=== PATIENT | male | born 1985 | race Hispanic/Latino ===

== ENCOUNTER 2018-01-27 18:41 | Emergency (ER) | payer SELFPAY | END 2018-01-27 19:15 | disposition short-term general hospital (02) | LOC: ER 18:41 | DX: M79.672 Pain in left foot (principal) ==

== ENCOUNTER 2019-05-25 11:20 | Emergency (ER) | payer OTHER ==
[~2019-05-25] VITALS: Ht 167.6 cm; Wt 99.8 kg
[2019-05-25 12:18] LABS: BASOPHILS % 0.4 % (0.0-1.0); EOSINOPHILS # (AUTO) 0.2 (0.0-0.4); EOSINOPHILS % 2.3 % (0.0-6.0); HEMATOCRIT 45.2 % (38.2-49.6); HEMOGLOBIN 15.6 g/dL (14.0-18.0); LYMPHOCYTES % 9.3 % (18.0-39.1); MEAN CORPUSCULAR HEMOGLOBIN 28.4 pg (28-32); MEAN CORPUSCULAR HGB CONC 34.5 g/dL (31-35); MEAN CORPUSCULAR VOLUME 82.3 fL (81-99); MONOCYTES # (AUTO) 0.8 (0.2-0.8); NEUTROPHILS # (AUTO) 8.2 (2.1-6.9); NEUTROPHILS % 79.5 % (38.7-80.0); PLATELET COUNT 280 x10e3/uL (140-360); RED BLOOD COUNT 5.49 x10e6/uL (4.3-5.7); RED CELL DISTRIBUTION WIDTH 12.8 % (11.7-14.4)
[2019-05-25 12:25] LABS: STREPTOCOCCUS GRP A ANTIGEN POSITIVE (NEGATIVE)
[2019-05-25 12:34] LABS: INFLUENZAE A&B ANTIGEN (RAPID) NEGATIVE (NEGATIVE)
[2019-05-25 12:41] LABS: ALANINE AMINOTRANSFERASE 66 IU/L (0-55); ALBUMIN 4.8 g/dL (3.5-5.0); ALBUMIN/GLOBULIN RATIO 1.3 (0.8-2.0); ALKALINE PHOSPHATASE 90 IU/L (40-150); ANION GAP 13.5 mmol/L (8-16); BLOOD UREA NITROGEN 9 mg/dL (7-26); BUN/CREATININE RATIO 10 (6-25); CALCIUM 10.1 mg/dL (8.4-10.2); CARBON DIOXIDE 26 mmol/L (22-29); CHLORIDE 104 mmol/L (98-107); CREATINE KINASE 225 IU/L (30-200); CREATININE, SERUM 0.91 mg/dL (0.72-1.25); EST GLOMERULAR FILTRATION RATE > 60 ML/MIN (60-); GLUCOSE 148 mg/dL (74-118); POTASSIUM 3.5 mmol/L (3.5-5.1); SODIUM 140 mmol/L (136-145)
--- NOTE | 2019-05-25 13:32 | Diagnostic Imaging Report ---
TECHNIQUE: Frontal view of the chest. INDICATION: ^cough COMPARISON: None IMPRESSION: Limited by patient body habitus. Lines and hardware: None. Heart and mediastinum: Unremarkable. Lungs and pleura: No focal airspace consolidation. Scattered atelectasis. No pleural effusion. No pneumothorax. Soft tissues and bones: No acute abnormality. Signed by: Zac Castano MD on 05/25/2019 1:29 PM
[2019-05-25] MEDS ORDERED: DEXAMETHASONE SOD PHOS 10 MG/1 ML VIAL IV ONE (13:45)
[2019-05-25] MEDS ORDERED: ALBUTEROL/IPRATROPIUM 3 ML NEB NEB ONE (13:45)
[2019-05-25] MEDS ORDERED: DEXAMETHASONE SOD PHOS 10 MG/1 ML VIAL ONE (13:53)
== END 2019-05-25 14:33 | disposition home or self-care (01) ==
LOC: ER 11:20
DX: R06.00 Dyspnea, unspecified (principal); J02.0 Streptococcal pharyngitis
CPT/HCPCS: 36415; 71045; 80053; 82550; 82553; 83518; 84484; 85025; 87040; 87400; 94640; 99284; J1100